=== PATIENT | male | born 1955 | race Caucasian/White ===

== ENCOUNTER 2023-01-25 14:28 | Outpatient (CLI) | payer MEDICARE, OTHER ==
[~2023-01-25 14:28] MED LIST: Magnevist 469MG/ML 20 ML VIAL ONE
== END 2023-01-25 14:29 | disposition home or self-care (01) ==
LOC: CSHMRI 14:28
PROVIDERS: ATTEND Urology
DX: C61 Malignant neoplasm of prostate (principal)
CPT/HCPCS: 72197; 82565